=== PATIENT | male | born 1960 | race Caucasian/White ===

== ENCOUNTER 2017-07-06 11:18 | Day surgery (SDC) | payer BC ==
[~2017-07-06] VITALS: Ht 170.2 cm; Wt 98.1 kg
[~2017-07-06 11:18] MED LIST: CYCL10 PO; HYDACE5325 PO; RXCYCL10 PO; RXHYD5325 PO; [UNRECOGNIZED DRUG - OTHER]
[2017-07-06] MEDS ORDERED: OLME20 PO (11:50)
[2017-07-06] MEDS ORDERED: CHLO25B PO (11:51)
[2017-07-06] MEDS ORDERED: AMLO10 PO (11:51)
[2017-07-06] MEDS ORDERED: ASPI81CH PO (11:53)
[2017-07-06] MEDS ORDERED: DIVA250EC PO (11:53)
== END 2017-07-06 13:28 | disposition home or self-care (01) ==
LOC: ORSCSDS 11:18
PROVIDERS: Internal Medicine Gastroenterology
PROC: 0DBL8ZX Excision of Transverse Colon, Via Natural or Artificial Opening Endoscopic, Diagnostic (ICD-10-PCS; principal; 2017-07-06 12:45)
PROC: 0DBK8ZX Excision of Ascending Colon, Via Natural or Artificial Opening Endoscopic, Diagnostic (ICD-10-PCS; principal; 2017-07-06 12:45)
PROC: 0DBN8ZX Excision of Sigmoid Colon, Via Natural or Artificial Opening Endoscopic, Diagnostic (ICD-10-PCS; principal; 2017-07-06 12:45)
DX: Z12.11 Encounter for screening for malignant neoplasm of colon (principal); D12.2 Benign neoplasm of ascending colon; D12.3 Benign neoplasm of transverse colon; D12.5 Benign neoplasm of sigmoid colon; K64.8 Other hemorrhoids; E78.5 Hyperlipidemia, unspecified; G40.909 Epilepsy, unspecified, not intractable, without status epilepticus; Z79.82 Long term (current) use of aspirin; Z79.899 Other long term (current) drug therapy
CPT/HCPCS: 88305; J7120

== ENCOUNTER → 2018-10-04 | Outpatient (CLI) | payer BC ==
[~2018-10-04] MED LIST changes: +AMLO10 PO; +ASPI81CH PO; +CHLO25B PO; +DIVA250EC PO; +OLME20 PO
== END | disposition home or self-care (01) ==
LOC: LAB SHORT 07:27 → PLD 07:27
DX: D48.5 Neoplasm of uncertain behavior of skin (principal)
CPT/HCPCS: 88305

== ENCOUNTER → 2020-02-14 | Outpatient (CLI) | payer BC ==
[~2020-02-14] MED LIST changes: +ACET325 PO; +ASCO500 PO; +Fish Oil 10001000 MG PO; +HYDR10 PO; +NITR.4SL SL; -OLME20 PO; +OLMESARTAN MEDO40 MG PO; +ROSU10TA PO; +VALP250 PO
[2020-02-14 10:58] LABS: Protein, Urine Quantitative 15.1 mg/dL (0.0-11.9)
== END | disposition home or self-care (01) ==
LOC: LAB SHORT 08:57 → LAB 08:57 → LAB FUT 01-09 10:40
PROVIDERS: Internal Medicine
DX: N18.31 Chronic kidney disease, stage 3a (principal); R80.0 Isolated proteinuria; R79.89 Other specified abnormal findings of blood chemistry
CPT/HCPCS: 81050; 82043; 84156

== ENCOUNTER 2021-11-26 09:19 | Day surgery (SDC) | payer OTHER ==
[~2021-11-26] VITALS: Ht 170.2 cm; Wt 97.8 kg
[~2021-11-26 09:19] MED LIST changes: +CATAPRES-TTS 11 EAC1 TOP; +DOXY100 PO; +FAMC500 PO; +NEBI10 PO; +PRAV20 PO; +SPIR25 PO
[2021-11-26] MEDS ORDERED: ERGO400 (09:39)
== END 2021-11-26 11:38 | disposition home or self-care (01) ==
LOC: ORSCSDS 09:19
PROVIDERS: Internal Medicine Gastroenterology
PROC: 0DBN8ZX Excision of Sigmoid Colon, Via Natural or Artificial Opening Endoscopic, Diagnostic (ICD-10-PCS; principal; 2021-11-26 10:30)
DX: Z12.11 Encounter for screening for malignant neoplasm of colon (principal); D12.5 Benign neoplasm of sigmoid colon; Z86.010 Personal history of colon polyps; Z79.899 Other long term (current) drug therapy
CPT/HCPCS: 88305; J2704; J7120

== ENCOUNTER → 2023-01-11 | Outpatient (CLI) | payer OTHER ==
[~2023-01-11] MED LIST changes: +ERGO400
== END ==
LOC: LAB SHORT 11:55 → LAB 11:55
DX: L73.9 Follicular disorder, unspecified (principal)
CPT/HCPCS: 87070; 87205